=== PATIENT | female | born 1955 | race Caucasian/White ===

== ENCOUNTER 2017-06-11 16:02 | Inpatient (IN) | END 2017-06-13 23:45 | disposition home or self-care (01) | DRG 379 ==

== ENCOUNTER 2017-09-18 12:03 | Inpatient (IN) | END 2017-09-21 16:35 | disposition home health service (06) | DRG 441 ==

== ENCOUNTER 2019-01-14 06:51 | Day surgery (SDC) | payer OTHER ==
[~2019-01-14] VITALS: Ht 167.6 cm; Wt 83.9 kg
[~2019-01-14 06:51] MED LIST: GLIP5TAB13 PO; HCTZ; LACT20SO2 PO; LANT3I SC; LEVOTHYROXINE; LISPRO; MTF1000T PO
[2019-01-14 07:25] VITALS: Ht 167.6 cm; Wt 83.9 kg
[2019-01-14 08:13] VITALS: BP 131/65; PULSE 69; RESP 15
[2019-01-14] MEDS ORDERED: PROPOFOL 40 ML ONE (08:57)
[2019-01-14 09:26] VITALS: BP 113/57; RESP 15
== END 2019-01-14 10:42 | disposition home or self-care (01) ==
LOC: GIL 06:51
PROVIDERS: ATTEND Internal Medicine Gastroenterology
DX: Z12.11 Encounter for screening for malignant neoplasm of colon (principal); K64.8 Other hemorrhoids; K64.4 Residual hemorrhoidal skin tags; I10 Essential (primary) hypertension; E11.9 Type 2 diabetes mellitus without complications; Z79.84 Long term (current) use of oral hypoglycemic drugs
CPT/HCPCS: 82962